=== PATIENT | female | born 1960 | race Caucasian/White ===

== ENCOUNTER 2024-07-01 10:00 | Day surgery (SDC) | payer MEDICARE, MEDICAID, SELFPAY ==
[2024-07-01] VITALS (7 sets, daily range): BP systolic 106–139; BP diastolic 66–96; PULSE 77–97; RESP 16–18; TEMP 36.2–36.6; O2SAT 95–99; BMI 34.8
--- NOTE | 2024-07-01 | IMM_PTH ---
PATIENT: LAUREN JOHNSON LOC: [facility] U#:[id number] AGE/SX: 64/F ROOM: RE07/01/[address]: Dr. Roman Epstein DO : 1960 BED: DIS: 07/01/2024 SPEC #: [id number] RECD: 07/03/24 11:50 STATUS: JAXON REQ #: [id number] RODOLFO: 07/01/24 00:[address]: Roman Epstein DEPT: IMMUNOHISTOCHEMISTRY RECD BY: Juan Elder ENTERED: 07/03/24 11:51 SP TYPE: IMMUNO OTHR DR: PATT CARL Tissues: A - Esophagus, NOS B - Gastric mucous membrane Procedures: Synapto (add) P53 (initial) NAPSIN A (add) CD45 (add) CD56 (add) CEA (add) CHROMO (add) CK7 (add) CK8 (add) KI-67 (add) P53 (add) TTF1 (add) Pankeratin (initial) NSE (add) S-100 (add) PHYSICIAN & [address] [address] SPECIMEN INFORMATION: Tissue Source: A- Distal esophagus biopsy, B- Sub mucosal mass biopsy Clinical Info: Specimen Number: [id number] A, B CPT code: 49457j9,70148q68 METHODOLOGY: Deparaffinized sections of prefer/formalin-fixed tissue or PAP/DQ stained slides are incubated with monoclonal/polyclonal antibodies/oligonucleotide probes. Localization is made via biotin free immunoperoxidase method. Appropriate controls are performed and reacted as expected. Results on target cell population are indicated in the following table: RESULTS: ANTIBODY / CLONE RESULT Block A P53 (DO-7) positive, wild type Ki-67 (30-9) positive, low Block B AE1-3 (AE1/AE3/PCK26) positive CK7 (OV-TL12/30) negative CK8 (26iuqtE52) positive CD45 (RP2/18) negative S-100 (4C4.9) negative CD56 (123C3.D5) positive Chromo (LK2H10) positive Synapto (polyclonal) positive NSE Neuron Specific Enolase negative TTF-1 (8G7G3/1) negative Napsin A (Rabbit Polyclonal) negative CEA (11-7/TF-3HB-1) negative P53 (DO-7) negative, null pattern Ki-67 (30-9) positive, 5% These tests were developed and their performance characteristics determined by [facility]. They may not have been cleared or approved by the U.S. Food and Drug Administration. The FDA has determined that such clearance or approval is not necessary. The above immunohistochemical/dualISH markers are ordered and reviewed by the Pathologist. INTERPRETATION: A. Distal esophagus, biopsy: No evidence of dysplasia. B. Sub mucosal mass, biopsy: Consistent with low grade neuroendocrine tumor. Case has been reviewed in consultation with Dr. Talley who concurs with the above diagnosis. IDC:RITCHIE Lazaro 07/04/2024
--- NOTE | 2024-07-01 | GASB_PTH ---
PATIENT: LAUREN JOHNSON LOC: [facility] U#:[id number] AGE/SX: 64/F ROOM: RE07/01/[address]: Dr. Roman Epstein DO : 1960 BED: DIS: 07/01/2024 SPEC #: [id number] RECD: 07/02/24 07:10 STATUS: JAXON REX #: [id number] RODOLFO: 07/01/24 00:[address]: Roman Epstein DEPT: SURGICAL PATHOLOGY RECD BY: Delroy Lombardi ENTERED: 07/02/24 09:58 SP TYPE: Gastric Bx OTHR DR: PATT CARL Tissues: A - Esophageal mucous membrane B - Gastric mucous membrane C - Duodenum, NOS Procedures: Special Stain Group I Surgery Specimen Level IV Alcian Blue/PAS (control) HEADER OPERATION: EGD with biopsy PRE-OP DIAGNOSIS: TISSUE SUBMITTED: A- Distal esophagus biopsy, B- Sub mucosal mass biopsy, C- Duodenum biopsy MICROSCOPIC DIAGNOSIS A. Distal esophagus, biopsy: Gastroesophageal junction mucosa with chronic inflammation. 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 No evidence of dysplasia. Focal changes of reflux. See comment. B. Submucosal mass, biopsy: Gastric mucosa with neuroendocrine tumor. See comment. C. Duodenum, biopsy: Jordy's gland hyperplasia. AM/ 07/03/2024 COMMENT A. Alcian blue/PAS stain with matched control is used in the evaluation of the specimen. Immunohistochemistry ([id number]) for P53 and Ki-67 will be performed and results will be reported separately. B. Immunohistochemistry ([id number]) supports the above diagnosis. A low proliferation index is noted. MICROSCOPIC DESCRIPTION Slides are reviewed. GROSS DESCRIPTION A. Received in fixative is one container labeled with the patient's name and designated Distal esophagus biopsy. The specimen consists of multiple irregular fragments of light tran soft tissue that in aggregate measure 1.0 x 0.3 x 0.1 cm. The specimen is totally submitted in one cassette. B. Received in fixative is one container labeled with the patient's name and designated Sub mucosal mass biopsy. The specimen consists of two irregular fragments of light tran soft tissue that in aggregate measure 0.8 x 0.4 x 0.1 cm. The specimen is totally submitted in one cassette. C. Received in fixative is one container labeled with the patient's name and designated Duodenum biopsy. The specimen consists of one irregular fragment of light tran soft tissue that measures 0.4 x 0.3 x 0.1 cm. The specimen is totally submitted in one cassette. SJ.mr 07/02/2024 TC:0 CPT:74009k6,40984
[2024-07-01] MEDS: Lactated Ringers 1,000 ML 15 ML IV (10:38)
--- NOTE | 2024-07-01 11:26 | PRE.ANES_ITS ---
ASA Classification* ASA Classification ASA Classification: 2 Assessment & Plan Anesthesia* Anesthesia Assessment Anesthesia Assessment: Discussed sedation and/or anesthesia options, risks, benefits, and alternatives with patient/parents/legal guardian/POA. Questions invited. The patient/parents/legal guardian/POA seems to understand and agrees to proceed with anesthesia plan. Reviewed the physical assessment, medical history, allergy history and patient home medications list prior to surgery/procedure/anesthetic and documented any changes. Performed airway and anesthesia risk assessments. Anesthesia Type Anesthesia Type: MAC History Source History Obtained from:: Patient and Chart Anesthesia Focused Assessment* Temperature: 97.1 F Pulse Rate: 77 Blood Pressure: 106/66 Respiratory Rate: 18 Pulse Ox: 99 Oxygen Delivery Method: Room Air Airway Assessment Mouth opens: >3 cm Mallampati Score: III Teeth Condition: Missing (Several missing teeth. 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 When Was Last Pacemaker Check QUESTION #4 FULL TEXT: You/Your Family Experience fever (hyperthermia) with Anesthesia Last Oral Intake Last Oral intake: Last Oral Intake NPO since 00:00 07/01/24 10:40 Meds taken in AM with sips of No 07/01/24 10:40 water? 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 Female Yes 06/26/24 12:07 HX of Motion Sickness Yes 06/26/24 12:07 HX of N/V After Surgery No 06/26/24 12:07 Non-Smoker No 06/26/24 12:07 Duration of Surgery greater No 06/26/24 12:07 than 60 minutes Number of Risk Factors 2 06/26/24 12:07 PONV Score Moderate Risk 06/26/24 12:07 Height & Weight Height & Weight: Anesthesia: Height & Weight Height 5 ft 6 in 07/01/24 10:40 Weight: 97.976 kg 07/01/24 10:40 Body Mass Index (BMI) 34.8 07/01/24 10:40 Respiratory Assessment Respiratory Assessment - water taxi driver: Respiratory Tract Infection Hx - water taxi driver Hx Respiratory Tract Infection No 06/26/24 12:07 STOP Sleep Apnea STOP Sleep Apnea - water taxi driver: STOP Sleep Apnea - water taxi driver Hx Hypertension No 06/26/24 12:07 Hx Sleep Apnea No 06/26/24 12:07 CPAP BIPAP Do you snore loudly (louder No 06/26/24 12:07 than talking or can be heard Do you often feel tired/ No 06/26/24 12:07 fatigued/ sleepy during daytime? Has anyone observed you stop No 06/26/24 12:07 breathing during sleep? STOP Results Negative 06/26/24 12:07 QUESTION #5 FULL TEXT : Do you snore loudly (louder than talking or can be heard through closed doors)? 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 Specify any problems Hx of Preganancy in last 3 No 06/26/24 12:07 Months Nurse Filling Out Transfusion VCHRISTIN 06/26/24 12:07 & Questions: Date: 06/26/24 06/26/24 12:07 Time: 12:09 06/26/24 12:07 Patient unable to answer at this time (ie. confused, unrespo /Reproduction History /Reproductive History - water taxi driver: /Reproductive Hx- water taxi driver Hx Now Gestational Age (in weeks): EDC: Hx Hx Para Hx Section SAB Active Medications Active Medications: Current Medications Generic Name Dose Route Start Last Admin Trade Name Freq PRN Reason Stop Dose Admin Lactated Ringer's 1,000 mls @ 15 mls/hr 07/01/24 10:15 07/01/24 10:38 IV 15 mls/hr .Q48H SUZIE Administration PFSH Medical History (Updated 06/26/24 @ 12:07 by Chasity Arriaga) Wears glasses Post-menopausal History of hiatal hernia Smoker History of pain when walking Home Medications ?Medication ?Instructions ?Recorded ?Last Taken ?Type omeprazole 40 mg capsule,delayed 40 mg PO DAILY #90 caps 06/11/24 06/30/24 Rx release Allergy/AdvReac Type Severity Reaction Status Date / Time Latex, Natural Rubber Allergy Severe ITCHING Verified 07/01/24 10:39 Sulfa (Sulfonamide AdvReac Severe Diarrhea Verified 07/01/24 10:39 Antibiotics) Surgical History (Updated 06/26/24 @ 12:07 by Chasity Arriaga) Hx of tubal ligation History of esophagogastroduodenoscopy (EGD) Social History (Updated 11/30/20 @ 11:[address] Edgar Dela Cruz, DO) Smoking Status: Current some day smoker tobacco type: cigarettes Review of Systems (Anesthesia) ROS Narrative System reviewed and no additional complaints, except as documented.
--- NOTE | 2024-07-01 11:29 | PCM.HP.BLA ---
History and Physical Date of Admission: 07/01/24 Chief Complaint: possoble ulcer Details: LAUREN JOHNSON, is a 64 F who presents to the office today for establishment with I for possible duodenal ulcer discovered through CT 05.03.24 at [place] ED. Patient was taking 3 naproxen every 12 hours for 3 weeks due to her sciatic pain. She notes taking the meds during the night time on an empty stomach. She had severe abdominal pain that lead her to the ED CT Abdomen/pelvis: 05.03.24: Subtle infiltrative changes surrounding the pancreatic head/proximal duodenum. Considerations include groove pancreatitis with reactive changes of the duodenum versus duodenitis with questioned associated ulceration. Correlation with pancreatic lab values and patients symptoms is recommended Biochemical work up: 05.03.24: WBC 11.2 H, RBC 4.14 L, MCV 96.4 H, PLT 221, NA 136, K 4.2, albumin 3.1 L, lipase 24, Alk phos 82, AST 32, ALT 28 OV 8.6.24 She is no longer having abdominal pain since her ED visit. She was given Pepcid in the ED and continues to take it daily. She has been avoiding all NSAIDs and eating a very bland diet. She tells me she does have a history of heartburn and was previously diagnosed with a hiatal hernia but has not had any problems in awhile. She has had an EGD in the past but no colonoscopy. She does not wish to have a colonoscopy done. She denies abdominal pain, heartburn, n/v, diarrhea, melena or hematemesis. ROS Const Constitutional: No fatigue, fever(s) or weight change ENT ENT: No difficulty swallowing Gastro GI: No abdominal pain, belching, bloating, change in bowel habits, change in stool character, coffee ground emesis, constipation, cramping, diarrhea, heartburn, difficulty swallowing, feeling full early, excessive flatus, incontinent of stools, Vomiting blood/hematemesis, Blood in stool, loose stools, Black,tarry stools, nausea/dyspepsia, pain with swallowing, vomiting or other Musc Musculoskeletal: Positive for sciatica and leg pain at night; No joint pain Skin Skin: No yellowing of the eye or itchy eyes Psych Psychiatric: No anxiety and No depression Endo Endocrine: No fatigue or weight change Aller/Imm Allergy/Immunologic: No itchy eyes Karthik/Lymp Hematologic/Lymphatic: No easy bleeding or easy bruising Exam Const General: cooperative and comfortable Nutritional Appearance: average body habitus and well nourished HENMT Head: normal to inspection Ears: hearing grossly normal bilaterally Nose: external nose normal Face and sinus: normal facial exam Mouth: oral mucosae normal Throat: posterior oropharynx normal Eyes General: appearance normal, both eyes and all related structures Neck Neck: normal visual inspection Chest Chest palpation & inspection: normal inspection of the chest and normal palpation of entire chest wall Resp Effort & Inspection: normal respiratory effort Auscultation: Bilateral: Clear to Auscultation Cardio Palpation: normal PMI Rate: regular rate Rhythm: regular rhythm GI Inspection: normal to inspection Auscultation: normal bowel sounds Percussion: normal to percussion Palpation: no hepatosplenomegaly Skin General: no rashes or lesions noted Neuro General: patient alert Extrem General: normal to inspection Psych Affect: normal affect Assessment and Plan Assessment and Plan (1) Abdominal pain: Status: Acute Plan: Patient is here to establish care for possible duodenal ulcer after having severe abdominal pain and CT suggestive of ulcer. Differential diagnosis includes gastric ulcer, duodenal ulcer and pancreatitis. NSAID induced ulcer is likely due to heavy use of naproxen for 3 weeks -She will be scheduled for EGD to rule out ulcer -Will prescribe her with omeprazole 40 mg daily -She will take famotidine as needed Medications: New omeprazole 40 mg PO DAILY 90 caps 3RF I have examined the patient and the H&P has been reviewed. There are no clinical changes since date of exam.
--- NOTE | 2024-07-01 12:30 | OP.EGD_ITS ---
Patient Name: Almaz Seugndo Procedure Date: 07/01/2024 12:01 PM Date of : 1960 Age: 64 Procedure: Upper GI endoscopy Indications: Heartburn, Follow-up of Page's esophagus Providers: Roman Epstein DO Medicines: Monitored Anesthesia Care Patient Profile: This is a 64 year old female. Refer to note in patient chart for documentation of history and physical. Patient has symptoms. Complications: No immediate complications. Procedure: Pre-Anesthesia Assessment: - Prior to the procedure, a History and Physical was performed, and patient medications and allergies were reviewed. The patient is competent. The risks and benefits of the procedure and the sedation options and risks were discussed with the patient. All questions were answered and informed consent was obtained. Patient identification and proposed procedure were verified by the physician in the pre-procedure area. Mental Status Examination: alert and oriented. Airway Examination: normal oropharyngeal airway and neck mobility. Respiratory Examination: clear to auscultation. CV Examination: normal. Prophylactic Antibiotics: The patient does not require prophylactic antibiotics. Prior Anticoagulants: The patient has taken no anticoagulant or antiplatelet agents. ASA Grade Assessment: III - A patient with severe systemic disease. After reviewing the risks and benefits, the patient was deemed in satisfactory condition to undergo the procedure. The anesthesia plan was to use monitored anesthesia care (MAC). Immediately prior to administration of medications, the patient was re-assessed for adequacy to receive sedatives. The heart rate, respiratory rate, oxygen saturations, blood pressure, adequacy of pulmonary ventilation, and response to care were monitored throughout the procedure. The physical status of the patient was re-assessed after the procedure. After obtaining informed consent, the endoscope was passed under direct vision. Throughout the procedure, the patient's blood pressure, pulse, and oxygen saturations were monitored continuously. The gastroscope was introduced through the mouth, and advanced to the second part of duodenum. The upper GI endoscopy was accomplished without difficulty. The patient tolerated the procedure well. Scope In: 12:11:17 PM Scope Out: 12:18:13 PM Total Procedure Duration Time 0 hours 6 minutes 56 seconds Findings: There were esophageal mucosal changes secondary to established short-segment Page's disease present in the lower third of the esophagus. The maximum longitudinal extent of these mucosal changes was 3 cm in length. Mucosa was biopsied with a cold forceps for histology in a targeted manner at intervals of 1 cm in the lower third of the esophagus. One specimen bottle was sent to pathology. Verification of patient identification for the specimen was done. Estimated blood loss was minimal. A medium-sized, polypoid, non-circumferential mass with no bleeding and no stigmata of recent bleeding was found in the gastric body. Biopsies were taken with a cold forceps for histology. Verification of patient identification for the specimen was done. Estimated blood loss was minimal. Localized mild inflammation characterized by erosions and erythema was found in the first portion of the duodenum. Biopsies were taken with a cold forceps for histology. Verification of patient identification for the specimen was done. Estimated blood loss was minimal. Impression: - Esophageal mucosal changes secondary to established short-segment Page's disease. Biopsied. 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 Biopsied. - Chronic duodenitis. Biopsied. Recommendation: - Discharge patient to home. - Resume previous diet. - Continue present medications. - Await pathology results. - Repeat upper endoscopy for surveillance. - Return to GI office. Procedure Code(s): --- Professional --- 16324, Esophagogastroduodenoscopy, flexible, transoral; with biopsy, single or multiple CPT copyright 2021 [employer]. All rights reserved. The codes documented in this report are preliminary and upon pre coder review may be revised to meet current compliance requirements. Roman Epstein DO 07/01/2024 12:29:41 PM This report has been signed electronically. Number of Addenda: 0 Note Initiated On: 07/01/2024 12:01 PM
--- NOTE | 2024-07-01 12:31 | PCM.POST.ANE ---
Anesthesia: Postop Eval I Current Vital Signs Temperature: 97.9 F Pulse Rate: 96 Blood Pressure: 117/87 Respiratory Rate: 18 Pulse Ox: 97 Oxygen Delivery Method: Room Air Assessment Airway patent: Yes Spontaneous unlabored respirations: Yes Mental status: Awake and Calm nausea: No Vomiting: No Anesthesia Complication: No Fluid Hydration Crystalloid volume administer (ml): 400 Total IV fluid infused: 400 Progress Note Anesthesia document: Postop Eval 1 completed: Yes
--- NOTE | 2024-07-01 13:51 | POSTOPAN2_ITS ---
Anesthesia Postop Eval I Sum Postop Eval Completion status Anesthesia document: Postop Eval 1 completed: Yes Anesthesia Postop Eval I Summary Anesthesia Postop Eval I Summary: Anesthesia Postop Eval I: Assessment Summary Airway patent Yes 07/01/24 12:31 MANAGER CARGO.[email or web address] Spontaneous unlabored Yes 07/01/24 12:31 MANAGER CARGO.PROSPER respirations Mental status Awake,Calm 07/01/24 12:31 MANAGER CARGO.ZEOOBJaneth nausea No 07/01/24 12:31 MANAGER CARGO.ZOEOBJaneth Vomiting No 07/01/24 12:31 MANAGER CARGO.PROSPER Anesthesia Postop Eval I: Fluid Summary Crystalloid volume administer 400 07/01/24 12:31 MANAGER CARGO.ZOEOBY (ml) Colloids volume administered ( ml) Blood Product volume administered (ml) Total IV fluid infused 400 07/01/24 12:31 MANAGER CARGO.PROSPER Anesthesia Postop Eval I: Summary Notes Anesthesia Complication No 07/01/24 12:31 MANAGER CARGO.PROSPER Anesthesia Complication Comment: Post-operative progress note Anesthesia: Postop Eval II Evaluation Mental status: Awake and Calm Pain Level: 0 nausea: No Vomiting: No Complications Anesthesia Complication: No
--- NOTE | 2024-07-01 13:51 | PCM.POSTANE2 ---
Anesthesia Postop Eval I Sum Postop Eval Completion status Anesthesia document: Postop Eval 1 completed: Yes Anesthesia Postop Eval I Summary Anesthesia Postop Eval I Summary: Anesthesia Postop Eval I: Assessment Summary Airway patent Yes 07/01/24 12:31 PERSONNEL RESEARCH PSYCHOLOGIST.ZOEOBJaneth Spontaneous unlabored Yes 07/01/24 12:31 PERSONNEL RESEARCH PSYCHOLOGIST.PROSPER respirations Mental status Awake,Calm 07/01/24 12:31 PERSONNEL RESEARCH PSYCHOLOGIST.ZOEOBJaneth nausea No 07/01/24 12:31 PERSONNEL RESEARCH PSYCHOLOGIST.ZOEOBJaneth Vomiting No 07/01/24 12:31 PERSONNEL RESEARCH PSYCHOLOGIST.PROSPER Anesthesia Postop Eval I: Fluid Summary Crystalloid volume administer 400 07/01/24 12:31 PERSONNEL RESEARCH PSYCHOLOGIST.ZOEOBY (ml) Colloids volume administered ( ml) Blood Product volume administered (ml) Total IV fluid infused 400 07/01/24 12:31 PERSONNEL RESEARCH PSYCHOLOGIST.PROSPER Anesthesia Postop Eval I: Summary Notes Anesthesia Complication No 07/01/24 12:31 PERSONNEL RESEARCH PSYCHOLOGIST.PROSPER Anesthesia Complication Comment: Post-operative progress note Anesthesia: Postop Eval II Evaluation Mental status: Awake and Calm Pain Level: 0 nausea: No Vomiting: No Complications Anesthesia Complication: No
== END 2024-07-01 12:58 | disposition home or self-care (01) ==
LOC: EN 10:20 → AC 10:44
PROVIDERS: PCP Nurse Practitioner Adult Health; Referring Provider Nurse Practitioner Adult Health; Visit Provider Internal Medicine Gastroenterology
PROC: 0DJ08ZZ Inspection of Upper Intestinal Tract, Via Natural or Artificial Opening Endoscopic (ICD-10-PCS; CPT 43235; principal; 2024-07-01 11:10)
DX: K22.70 Barrett's esophagus without dysplasia (principal); D3A.8 Other benign neuroendocrine tumors; K29.80 Duodenitis without bleeding; K31.89 Other diseases of stomach and duodenum; F17.210 Nicotine dependence, cigarettes, uncomplicated; Z79.899 Other long term (current) drug therapy
CPT/HCPCS: 43239; 88305; 88312; 88341; 88342; J7120

== ENCOUNTER 2024-09-12 11:14 | Day surgery (SDC) | payer MEDICARE, MEDICAID, SELFPAY ==
[2024-09-12] VITALS (8 sets, daily range): BP systolic 113–154; BP diastolic 68–100; PULSE 63–98; RESP 16–18; TEMP 36.6–36.9; O2SAT 95–100; BMI 34.2
[2024-09-12] MEDS: 0.9% Normal Saline (Pres. free 10 ML Vial (14:00)
[2024-09-12] MEDS: Epinephrine (1 mg/ml) 1 MG/ML VIAL (14:00)
== END 2024-09-12 14:51 | disposition home or self-care (01) ==
LOC: EN 11:15 → AC 11:29
PROVIDERS: PCP Nurse Practitioner Adult Health; Referring Provider Nurse Practitioner Adult Health; Visit Provider Internal Medicine Gastroenterology
PROC: 0DJ08ZZ Inspection of Upper Intestinal Tract, Via Natural or Artificial Opening Endoscopic (ICD-10-PCS; CPT 43235; principal; 2024-09-12 12:40)
DX: D3A.8 Other benign neuroendocrine tumors (principal); K25.9 Gastric ulcer, unspecified as acute or chronic, without hemorrhage or perforation; K21.9 Gastro-esophageal reflux disease without esophagitis; Z79.899 Other long term (current) drug therapy; F17.210 Nicotine dependence, cigarettes, uncomplicated
CPT/HCPCS: 43251; 43255; 88305; 88341; 88342; A4216; J2405; J3490

== ENCOUNTER → 2024-11-14 | Outpatient (CLI) | payer MEDICARE, MEDICAID, SELFPAY ==
--- NOTE | 2024-11-14 12:51 | CT_ITS ---
INDICATION: NET-STOMACH EXAMINATION: CT Chest Abdomen And Pelvis W/ Contrast Injection TECHNIQUE: Images were obtained of the chest, abdomen and pelvis following IV contrast. A radiation dose optimization technique was used for this scan. IV Contrast dosage and agent: Oral and amp; IV Readi-CAT and amp; 100mL Isovue-370 COMPARISON: None. FINDINGS: Lungs: Scattered subsegmental atelectasis. Mediastinum: The cardiomediastinal silhouette is not enlarged. No mediastinal, hilar or axillary adenopathy. Mild aortic arch and coronary artery calcifications. No obvious filling defect seen within the visualized pulmonary arteries. Pleura: Unremarkable Liver: Unremarkable Gallbladder: Unremarkable Spleen: Unremarkable Pancreas: Unremarkable Adrenal Glands: Unremarkable Kidneys: Unremarkable Vasculature: Mild scattered aortoiliac atherosclerotic calcifications. GI Tract: Unremarkable Lymphadenopathy: None Peritoneum: No ascites. Bladder: Unremarkable Reproductive organs: Calcified uterine fibroid. Bones/Soft tissues: There are diffuse degenerative changes of the spine. CT/CT Chest, Abd, Pel w/Contrast IMPRESSION: No acute abnormalities in the chest, abdomen or pelvis. Electronically Signed: Shawn Layton MD at 21:29 EST ,
== END | disposition home or self-care (01) ==
PROVIDERS: PCP Nurse Practitioner Adult Health; Referring Provider Internal Medicine Medical Oncology; Visit Provider Internal Medicine Medical Oncology
DX: D3A.8 Other benign neuroendocrine tumors (principal)
CPT/HCPCS: 71260; 74177; Q9967

== ENCOUNTER → 2024-12-17 | Outpatient (CLI) | payer MEDICARE, MEDICAID, SELFPAY ==
--- NOTE | 2024-12-17 09:00 | PET_ITS ---
EXAM: Gallium 68 Dotatate PET-CT CLINICAL HISTORY: 64-year-old female with a history of low-grade duodenal neuroendocrine tumor, for initial staging. COMPARISON: None available. TECHNIQUE: A total of 5.123 mCi gallium 68 DOTATATE was administered intravenously. PET images were obtained from the vertex through the mid thighs. Through this same anatomic region, CT images were obtained for attenuation correction purposes and anatomic localization. Dose reduction techniques include automated exposure control and/or adjustment of mA and/or kv according to patient size and or use of iterative reconstructive technique. FINDINGS: Head and neck: A faint area of uptake in the right parietal vertex with a max SUV of 2.5 is associated with a lytic calvarial lesion. No additional abnormal uptake is seen in the head or neck. Physiologic uptake is seen in the pituitary. The salivary and thyroid glands are normal. Mucosal surfaces are grossly symmetric. Chest: No abnormal activity in the chest. Mild atelectasis in the lingula. Heart size is enlarged. Coronary atherosclerosis is noted. Pericardium is thin and normal appearing. No pleural effusion or pneumothorax is seen. Abdomen and pelvis: No abnormal activity in the abdomen or pelvis. The liver, spleen, pancreas, gallbladder are normal. Kidneys, ureters, urinary bladder are normal. a.m. calcified fibroid is seen in the otherwise normal uterus. Moderate amount of stool is noted throughout the colon. No bowel obstruction. No free intraperitoneal air or fluid. PET/PET/CT Tumor Base -Thigh Init IMPRESSION: MILDLY INCREASED UPTAKE ASSOCIATED WITH A LYTIC LESION IN THE CALVARIUM, FAVORE D TO BE DUE TO A HEMANGIOMA RATHER THAN A METASTASIS. CORRELATION WITH LABORATORY VALUES IS SUGGESTED TO CONFIRM. Reading Location: [id number]
== END | disposition home or self-care (01) ==
LOC: ONC 08:25
PROVIDERS: PCP Nurse Practitioner Adult Health; Referring Provider Nurse Practitioner Acute Care; Visit Provider Nurse Practitioner Acute Care
DX: D3A.8 Other benign neuroendocrine tumors (principal)
CPT/HCPCS: 78815; A9587